=== PATIENT | male | born 1980 | race Caucasian/White ===

== ENCOUNTER 2023-02-08 00:46 | Inpatient (IN) | payer BC ==
[~2023-02-08] VITALS: Ht 172.7 cm; Wt 84.4 kg
[2023-02-08] VITALS (23 sets, daily range): BP systolic 112–120; BP diastolic 88; PULSE 104–173; RESP 23–41; TEMP 99.2; O2SAT 97
[2023-02-08] MEDS ORDERED: SODIUM CHLORIDE 0.9% 1,000 ML IV ONE ×3 (01:00→06:15)
[2023-02-08] MEDS ORDERED: NITROGLYCERIN 0.4MG TABLET SL SL PRN (01:00)
[2023-02-08] MEDS ORDERED: ENOXAPARIN 100MG/ML SYR SUBCUT ONE (01:00)
[2023-02-08 01:13] LABS: EOSINOPHILS % 1.8 % (0.0-5.0); HEMATOCRIT. 43.1 % (42.0-52.0); HEMOGLOBIN. 14.1 g/dL (14.0-18.0); LYMPHOCYTES % 49.1 % (20.0-50.0); MEAN CORPUSCULAR HEMOGLOBIN 27.6 pg (28.0-32.0); MEAN CORPUSCULAR HGB CONC 32.7 g/dL (31.0-37.0); MEAN CORPUSCULAR VOLUME 84.4 fL (80.0-94.0); MEAN PLATELET VOLUME 7.6 fl (7.4-10.4); MONOCYTES % 5.7 % (2.0-8.0); NEUTROPHILS % 42.4 % (40.0-76.0); PLATELET 283 x1000/uL (130-400); RED CELL DISTRIBUTION WIDTH 13.8 % (11.6-14.6); WHITE BLOOD COUNT 11.2 x1000/uL (4.5-11.0)
[2023-02-08 01:35] LABS: D-DIMER < 0.19 mg/L FEU (<0.50); PROTHROMBIN TIME 11.2 sec (9.6-11.0)
[2023-02-08 02:27] LABS: CHLORIDE 104 mEq/L (98-107); POTASSIUM 3.5 mEq/L (3.5-5.1); SODIUM 140 mEq/L (136-145)
[2023-02-08 02:29] LABS: CREATININE 1.2 mg/dL (0.6-1.3); GLUCOSE 202 mg/dL (70-105); UREA NITROGEN BLOOD 15 mg/dL (9-23)
[2023-02-08 02:30] LABS: ALBUMIN 4.1 g/dL (3.2-4.8); CALCIUM 9.3 mg/dL (8.7-10.4)
[2023-02-08 02:32] LABS: ALANINE AMINOTRANSFERASE 32 IU/L (10-49); ASPARTATE AMINOTRANSFERASE 27 IU/L (<34); BILIRUBIN TOTAL 0.6 mg/dL (0.1-1.0)
[2023-02-08 02:33] LABS: TROPONIN I HIGH SENSITIVITY 31 ng/L (3.0-53)
[2023-02-08 02:35] LABS: PROTEIN TOTAL 6.2 g/dL (6.0-8.3)
[2023-02-08] MEDS ORDERED: DOCUSATE SODIUM 100MG CAPSULE PO PRN (05:45)
[2023-02-08] MEDS ORDERED: MAGNESIUM/ALUMINUM HYDROXIDE/SIMETHICONE 30ML UDC PO PRN (05:45)
[2023-02-08] MEDS ORDERED: ONDANSETRON HCL 4MG/2ML INJ IV PRN (05:45)
[2023-02-08] MEDS ORDERED: GUAIFENESIN 200MG/10ML SUGAR FREE UDC PO PRN (05:45)
[2023-02-08] MEDS ORDERED: ACETAMINOPHEN 325MG TABLET PO PRN ×3 (05:45→12:45)
[2023-02-08] MEDS ORDERED: DEXTROSE 50% WATER 50ML SYRINGE IV PRN (05:45)
[2023-02-08] MEDS ORDERED: HYDROCODONE/ACETAMINOPHEN 5/325MG TABLET PO PRN (05:45)
[2023-02-08] MEDS ORDERED: IPRATROPIUM/ALBUTEROL 0.5-3(2.5)MG/3ML NEB HHN PRN (05:45)
[2023-02-08] MEDS ORDERED: CLONIDINE 0.1MG TABLET PO PRN (05:45)
[2023-02-08] MEDS ORDERED: ONDANSETRON HCL 4MG/2ML INJ IV NR (06:06)
[2023-02-08 06:29] LABS: ETHANOL BLOOD < 10 mg/dL (<10)
[2023-02-08 06:30] LABS: TROPONIN I HIGH SENSITIVITY 1955 ng/L (3.0-53)
[2023-02-08 07:02] LABS: CREATINE KINASE MB FRACTION 47.2 ng/mL (0.5-3.6)
[2023-02-08] MEDS ORDERED: LIDOCAINE HCL 1% 20ML VIAL (Pyxis) INJ ONE (07:55)
[2023-02-08] MEDS ORDERED: IODIXANOL 320MG/ML 100 ML BOTTLE IV ONE ×3 (07:56→10:37)
[2023-02-08] MEDS ORDERED: HEPARIN 1000 UNITS/ML 10ML ONE ×3 (07:56→10:50)
[2023-02-08] MEDS ORDERED: DIPHENHYDRAMINE 50MG/ML VIAL ONE (07:56)
[2023-02-08] MEDS ORDERED: FENTANYL CITRATE/PF 50MCG/ML 2ML VIAL ONE (08:00)
[2023-02-08] MEDS ORDERED: VERAPAMIL HCL 2.5 MG/1 ML 2ML VIAL IV ONE (08:00)
[2023-02-08] MEDS ORDERED: MIDAZOLAM HCL 2 MG/2 ML VIAL ONE ×2 (08:01→10:19)
[2023-02-08] MEDS ORDERED: INSULIN LISPRO 100 UNITS/ML SUBCUT SCH (08:20)
[2023-02-08] MEDS ORDERED: PANTOPRAZOLE SODIUM 40 MG/VIAL IV SCH (09:00)
[2023-02-08] MEDS ORDERED: BLOOD SUGAR DIAGNOSTIC STRIP TEST SCH (09:00)
[2023-02-08] MEDS ORDERED: ENOXAPARIN 40MG/0.4ML SYR SUBCUT SCH (09:00)
[2023-02-08] MEDS ORDERED: DOPAMINE 400MG/250ML PREMIX 250 ML IV ONE ×2 (09:07→14:30)
[2023-02-08] MEDS ORDERED: EPTIFIBATIDE 2 MG/ML 10ML VIAL IV ONE ×2 (09:11→09:19)
[2023-02-08] MEDS ORDERED: FUROSEMIDE 100MG/10ML VIAL ONE (09:25)
[2023-02-08] MEDS ORDERED: SUCCINYLCHOLINE CHLORIDE 200MG/10ML IV ONE (09:41)
[2023-02-08] MEDS ORDERED: ETOMIDATE 2MG/ML 10ML VIAL IV ONE (09:42)
[2023-02-08] MEDS ORDERED: PROPOFOL 10MG/ML 100ML 100 ML IV ONE ×2 (09:56→12:39)
[2023-02-08] MEDS ORDERED: MIDAZOLAM HCL 100 MG in SODIUM CHLORIDE 0.9% 100 ML IV PRN (10:30)
[2023-02-08] MEDS ORDERED: MIDAZOLAM 100MG/100ML PMX 100 ML IV PRN (10:30)
[2023-02-08] MEDS ORDERED: NOREPINEPHRINE 8MG/250ML PMX 250 ML IV ONE (11:09)
[2023-02-08] MEDS ORDERED: AMIODARONE HCL 50MG/ML 3ML VIAL IV ONE ×3 (11:09→11:33)
[2023-02-08] MEDS ORDERED: ADENOSINE 3 MG/ML 2ML VIAL IV ONE ×2 (11:15→11:47)
[2023-02-08] MEDS ORDERED: MIDAZOLAM HCL 5 MG/5 ML VIAL ONE (11:41)
[2023-02-08] MEDS ORDERED: AMIODARONE HCL 900 MG in DEXT 5% WATER 500 ML IV PRN (11:45)
[2023-02-08] MEDS ORDERED: HEPARIN 25,000 UNITS PREMIX 250 ML IV SCH ×2 (12:30→15:15)
[2023-02-08] MEDS ORDERED: DEXMEDETOMIDINE 400 MCG/100 ML 100 ML IV PRN (12:30)
[2023-02-08] MEDS ORDERED: EPINEPHRINE 10 MG in SODIUM CHLORIDE 0.9% 240 ML IV PRN (12:45)
[2023-02-08] MEDS ORDERED: ATROPINE SULFATE 1MG/10ML SYR IV PRN (12:45)
[2023-02-08 12:58] LABS: BG BASE EXCESS -11.9 mmol/L (-2.0-2.0); BG CARBOXYHEMOGLOBIN 0.3 % (0.5-1.5); BG DEOXYHEMOGLOBIN 37.1 % (0.0-5.0); BG FRACTION INSPIRED OXYGEN 100; BG HCO3 ACT 16.6 mmol/L (22.0-26.0); BG METHEMOGLOBIN 0.2 % (0.0-1.5); BG OXYGEN SATURATION 62.7 % (92.0-98.5); BG OXYHEMOGLOBIN 62.4 % (94.0-97.0); BG PCO2 47.4 mmHg (35.0-45.0); BG PH 7.163 (7.350-7.450); BG PO2 39.7 mmHg (75.0-100.0); BG SAMPLE SITE LEFT RADIAL; BG TOTAL HEMOGLOBIN 14.9 g/dL (12.0-18.0); BG VENT MODE VENT - AC
[2023-02-08] MEDS ORDERED: DEXTROSE 5% IV SCH (13:00)
[2023-02-08] MEDS ORDERED: SODIUM BICARBONATE IV SCH (13:00)
[2023-02-08] MEDS ORDERED: WATER IV SCH (13:00)
[2023-02-08] MEDS ORDERED: IMPELLA PURGE SOLUTION MC SCH ×2 (13:30)
[2023-02-08] MEDS ORDERED: FENTANYL CITRATE 2,500 MCG in SODIUM CHLORIDE 0.9% 200 ML IV PRN (13:45)
[2023-02-08] MEDS ORDERED: VECURONIUM BROMIDE 50 MG in DEXTROSE 5% WATER 50 ML IV PRN (13:45)
[2023-02-08] MEDS ORDERED: ALBUMIN HUMAN 25GM/100ML (25%) IV NR (13:45)
[2023-02-08] MEDS ORDERED: FENTANYL 2500MCG/250ML PMX 250 ML IV ONE (13:45)
[2023-02-08 14:08] LABS: BG BASE EXCESS -10.8 mmol/L (-2.0-2.0); BG CARBOXYHEMOGLOBIN 0.4 % (0.5-1.5); BG DEOXYHEMOGLOBIN 36.5 % (0.0-5.0); BG FRACTION INSPIRED OXYGEN 100; BG HCO3 ACT 17.9 mmol/L (22.0-26.0); BG METHEMOGLOBIN 0.3 % (0.0-1.5); BG OXYGEN SATURATION 63.2 % (92.0-98.5); BG OXYHEMOGLOBIN 62.8 % (94.0-97.0); BG PCO2 51.5 mmHg (35.0-45.0); BG PO2 39.2 mmHg (75.0-100.0); BG SAMPLE SITE LEFT BRACHIAL; BG TOTAL HEMOGLOBIN 13.8 g/dL (12.0-18.0); BG VENT MODE VENT - AC
[2023-02-08] MEDS ORDERED: NOREPINEPHRINE 8MG/250ML PMX 250 ML IV PRN (14:30)
[2023-02-08] MEDS ORDERED: DOPAMINE 800MG PREMIX (DOUBLE) 250 ML IV PRN (14:30)
[2023-02-08] MEDS ORDERED: SODIUM BICARBONATE 8.4% 1 MEQ/ML 50ML SYR IV NR (14:30)
[2023-02-08 15:00] LABS: HEMATOCRIT 34.1 % (42.0-52.0); HEMOGLOBIN 11.7 g/dL (14.0-18.0)
[2023-02-08] MEDS ORDERED: NOREPINEPHRINE 32 MG in DEXT 5% WATER 218 ML IV PRN (15:00)
[2023-02-08] MEDS ORDERED: PROPOFOL 10MG/ML 100ML 100 ML IV PRN (15:15)
[2023-02-08 15:48] LABS: BG BASE EXCESS -7.5 mmol/L (-2.0-2.0); BG CARBOXYHEMOGLOBIN 0.3 % (0.5-1.5); BG DEOXYHEMOGLOBIN 22.1 % (0.0-5.0); BG FRACTION INSPIRED OXYGEN 100; BG HCO3 ACT 19.1 mmol/L (22.0-26.0); BG METHEMOGLOBIN 0.3 % (0.0-1.5); BG OXYGEN SATURATION 77.8 % (92.0-98.5); BG OXYHEMOGLOBIN 77.3 % (94.0-97.0); BG PH 7.266 (7.350-7.450); BG PO2 48.5 mmHg (75.0-100.0); BG SAMPLE SITE ALINE; BG TOTAL HEMOGLOBIN 12.3 g/dL (12.0-18.0); BG VENT MODE VENT - AC
[2023-02-08 16:38] LABS: BG CARBOXYHEMOGLOBIN 0.2 % (0.5-1.5); BG DEOXYHEMOGLOBIN 16.2 % (0.0-5.0); BG FRACTION INSPIRED OXYGEN 100; BG HCO3 ACT 19.2 mmol/L (22.0-26.0); BG METHEMOGLOBIN 0.4 % (0.0-1.5); BG OXYGEN SATURATION 83.7 % (92.0-98.5); BG OXYHEMOGLOBIN 83.2 % (94.0-97.0); BG PCO2 45.9 mmHg (35.0-45.0); BG PH 7.239 (7.350-7.450); BG PO2 55.7 mmHg (75.0-100.0); BG SAMPLE SITE ALINE; BG TOTAL HEMOGLOBIN 12.4 g/dL (12.0-18.0); BG VENT MODE VENT - AC
[2023-02-08 16:42] LABS: CALCIUM 8.1 mg/dL (8.7-10.4); CARBON DIOXIDE 22 mEq/L (21-32); CHLORIDE 104 mEq/L (98-107); CREATININE 1.6 mg/dL (0.6-1.3); GLUCOSE 327 mg/dL (70-105); POTASSIUM 4.1 mEq/L (3.5-5.1); SODIUM 144 mEq/L (136-145); UREA NITROGEN BLOOD 21 mg/dL (9-23)
[2023-02-08 16:44] LABS: TROPONIN I HIGH SENSITIVITY > 25000 ng/L (3.0-53)
[2023-02-08] MEDS ORDERED: TICAGRELOR 90 MG TABLET PO NR (17:15)
[2023-02-08 18:02] LABS: BG BASE EXCESS -11.2 mmol/L (-2.0-2.0); BG CARBOXYHEMOGLOBIN 0.5 % (0.5-1.5); BG DEOXYHEMOGLOBIN 16.7 % (0.0-5.0); BG FRACTION INSPIRED OXYGEN 100; BG HCO3 ACT 16.6 mmol/L (22.0-26.0); BG METHEMOGLOBIN 0.3 % (0.0-1.5); BG OXYGEN SATURATION 83.2 % (92.0-98.5); BG OXYHEMOGLOBIN 82.5 % (94.0-97.0); BG PCO2 44.6 mmHg (35.0-45.0); BG PH 7.189 (7.350-7.450); BG PO2 57.2 mmHg (75.0-100.0); BG SAMPLE SITE ALINE; BG TOTAL HEMOGLOBIN 12.2 g/dL (12.0-18.0); BG VENT MODE VENT - AC
[2023-02-09] MEDS ORDERED: ASPIRIN 81MG TABLET PO SCH (09:00)
== END 2023-02-08 21:00 | disposition short-term general hospital (02) | DRG 215 ==
LOC: ER 00:46 → CVICU 02:07 → EDBEDREQTM 02:16 → EDBEDREQ 02:16 → ER 08:00
PROVIDERS: ADMIT Hospitalist; ATTEND Hospitalist
PROC: 02HA3RZ Insertion of Short-term External Heart Assist System into Heart, Percutaneous Approach (ICD-10-PCS; principal; 2023-02-08)
PROC: 02C03ZZ Extirpation of Matter from Coronary Artery, One Artery, Percutaneous Approach (ICD-10-PCS; 2023-02-08)
PROC: 027035Z Dilation of Coronary Artery, One Artery with Two Drug-eluting Intraluminal Devices, Percutaneous Approach (ICD-10-PCS; 2023-02-08)
PROC: 5A0221D Assistance with Cardiac Output using Impeller Pump, Continuous (ICD-10-PCS; 2023-02-08)
PROC: B211YZZ Fluoroscopy of Multiple Coronary Arteries using Other Contrast (ICD-10-PCS; 2023-02-08)
PROC: 4A023N8 Measurement of Cardiac Sampling and Pressure, Bilateral, Percutaneous Approach (ICD-10-PCS; 2023-02-08)
DX: I21.09 ST elevation (STEMI) myocardial infarction involving other coronary artery of anterior wall (principal); J96.01 Acute respiratory failure with hypoxia; R57.0 Cardiogenic shock; E87.4 Mixed disorder of acid-base balance; G93.40 Encephalopathy, unspecified; I25.10 Atherosclerotic heart disease of native coronary artery without angina pectoris; Z20.822 Contact with and (suspected) exposure to COVID-19; E78.1 Pure hyperglyceridemia; D72.829 Elevated white blood cell count, unspecified; M10.9 Gout, unspecified; R73.9 Hyperglycemia, unspecified; Z79.899 Other long term (current) drug therapy
CPT/HCPCS: 33990; 36415; 36600; 71045; 80048; 80053; 80320; 82375; 82550; 82553; 82805; 82962; 83036; 83735; 83880; 84484; 85014; 85018; 85025; 85049; 85347; 85379; 87426; 92928; 92973; 93005; 93306; 93308; 93460; 94002; 99291; C1725; C1726; C1757; C1760; C1769; C1874 ×2; C1887; C1893; C9803; J0153; J0282; J0330; J1200; J1265; J1327; J1644; J1650; J1940; J2250; J2405; J2704; J3010; J3490; J7030; J7050; J7070; P9047; Q9967; G0480; J8499